=== PATIENT | male | born 1995 | race Caucasian/White ===

== ENCOUNTER 2017-08-27 22:28 | Emergency (ER) | payer MEDICARE ==
[~2017-08-27] VITALS: Ht 180.3 cm; Wt 113.6 kg
[2017-08-27 22:48] VITALS: BP 138/98; Ht 180.3 cm; Wt 113.6 kg
[2017-08-28] MEDS ORDERED: PREDNISONE20 MG PO (01:08)
[2017-08-28] MEDS ORDERED: HYDROCORTISONE30 G9 TOPICAL (01:08)
== END 2017-08-28 01:21 | disposition home or self-care (01) ==
LOC: D.ER 22:28
DX: L25.9 Unspecified contact dermatitis, unspecified cause (principal); F17.200 Nicotine dependence, unspecified, uncomplicated